=== PATIENT | male | born 1985 | race Caucasian/White ===

== ENCOUNTER 2024-08-15 18:09 | Emergency (ER) | payer SELFPAY ==
[2024-08-15 18:25] VITALS: BP 117/73; PULSE 100; RESP 19; TEMP 36.6; O2SAT 99; BMI 22.6
--- NOTE | 2024-08-15 18:25 | ED_ITS ---
HPI - Skin/Abscess/Foreign Bdy General Chief complaint: Wound/Laceration Stated complaint: abcess Time Seen by Provider: 08/16/24 05:00 Source: patient Mode of arrival: ambulatory Limitations: no limitations History of Present Illness ED Provider: DR. Payne HPI narrative: 38-year-old male came in with left buttock cheek abscess for the past 9 days, multiple history of abscesses in the past. Related Data Allergies Allergy/AdvReac Type Severity Reaction Status Date / Time No Known Allergies Allergy Verified 08/15/24 18:27 Review of Systems Review of Systems: All other systems are reviewed and are negative Constitutional: Reports as per HPI and Reports no additional constitutional complaints Eyes: Reports as per HPI and Reports no additional eye complaints Reports system reviewed and no additional complaints, except as documented Cardiovascular: Reports as per HPI and Reports no additional cardiovascular complaints Respiratory: Reports as per HPI and Reports no additional respiratory complaints Gastrointestinal: Reports as per HPI and Reports no additional gastrointestinal complaints Genitourinary: Reports no additional female genitourinary complaints Musculoskeletal: Reports no additional musculoskeletal complaints Skin/Breast: Reports system reviewed and no additional complaints, except as docu Psychiatric: Reports no additional psychiatric complaints Endocrine: Reports no additional endocrine complaints Hematologic/Lymphatic: Reports no additional hematologic/lymphatic complaints Allergic/Immunologic: Reports no additional allergic/immunologic complaints Reports system reviewed and no additional complaints, except as documented and Reports Abnormal speech present [facility] Social History Social History Advance Directives: No Advance Directives Information Provided: No Physical Exam Vital Signs: Vital Signs: Last Vital Signs Temp 97.7 F 08/16/24 03:38 Pulse 77 08/16/24 03:38 Resp 16 08/16/24 03:38 BP 123/75 08/16/24 03:38 Pulse Ox 99 08/16/24 03:38 O2 Del Method Room Air 08/16/24 03:38 BMI result Body Mass Index 22.6 Vital signs have been reviewed and appear to be correct. Blood pressure elevated. Heart rate normal. Respiratory rate normal. Temperature normal. Oxygen saturation normal. Appearance: Alert. Oriented X3. No acute distress. Head: Normal external exam. Normocephalic. Atraumatic. No Gill signs noted. No raccoon eyes noted Eyes: PERRLA. EOMI. Conjunctiva and sclera normal. Eyelids normal. ENT: TM's Normal. Pharynx normal. Uvula midline. Moist mucous membranes. No trismus noted. No drooling noted. No muffled voice noted. Neck: Normal inspection. Neck supple. FROM. No adenopathy. Thyroid Normal. No meningeal signs. No neck mass noted. CVS: Normal heart rate and rhythm. Heart sound normal. No murmurs noted. Pulses normal throughout. Respiratory: No respiratory distress. Painless inspiration. Breath sounds normal. No wheezes/rales/rhonchi noted. Chest nontender. No accessory muscle usage noted or decreased air movement noted. Abdomen: Soft and nontender. Bowel sounds normal in all 4 quadrants. No distention noted. No organomegaly noted. No visible injury noted. Back: No CVA tenderness. Full range of motion noted. Skin: Left buttock: 5 x 7 cm area of redness, hotness, fluctuation, tenderness. Extremities: No lower extremity edema. Extremities exhibit normal range of motion. Extremities nontender. Neuro: Oriented X 3. Cranial nerve exam: II-XII are grossly intact No motor deficit. No sensory deficit. Reflexes normal. Course Course Course Narrative: This is a Rapid Medical Examination (RME) performed by Wes Burrows PA-C in triage. Full HPI, ROS, assessment and treatment plan per primary provider in the Main ED. 38 y/o male with history of recurrent abscesses presents to the ER for evaluation of a painful, red and tender abscess to the right buttock for the last 9 days. No drainage. History of similar presentations requiring I and D in the past. No history of IVDA. No fevers at home. Patient reports the abscess is on his butt cheek and not near the rectal area. Plan: Examination, incision and drainage and [facility] [place] Reevaluation(s) Reevaluation #1: S/p left buttock abscess I&D. Time: 05:24 Medical Decision Making Differential Diagnosis Differential Diagnoses: The differential diagnosis associated with the presentation includes ( left buttock abscess, left buttock cellulitis) Admission/Observation Consideration of admission/observation: Escalation of care including admission/observation considered Procedures Abscess I/D Site: other ( Left buttock) Side (if applicable): left Local Anesthetic: lidocaine 2% Amount of anesthesia used (mL): 5 Technique: incised with blade Amount of fluid expressed (mL): 20 Irrigation: No Packing used?: none Discharge Plan Discharge Clinical Impression: Abscess of left buttock Patient Disposition: Home, Self-Care Instructions: Abscess Incision and Drainage (DC) Print Language: Green[place]ic
[2024-08-16 03:38] VITALS: BP 123/75; PULSE 77; RESP 16; TEMP 36.5; O2SAT 99
[2024-08-16 05:21] VITALS: BP 0/0; BP 128/70; PULSE 0; PULSE 80; RESP 0; RESP 16; TEMP -17.7; TEMP 0; TEMP 36.9; O2SAT 0; O2SAT 98
[2024-08-16] MEDS: Ibuprofen 400 MG TABLET PO (05:30)
== END 2024-08-16 05:21 | disposition home or self-care (01) ==
PROVIDERS: Emergency Provider Emergency Medicine
DX: L02.31 Cutaneous abscess of buttock (principal)
CPT/HCPCS: 10060; 99283; 99284